=== PATIENT | male | born 1985 | race Caucasian/White ===

== ENCOUNTER 2017-01-12 10:16 | Emergency (ER) | payer MEDICAID, OTHER ==
[~2017-01-12] VITALS: Ht 180.3 cm; Wt 106.6 kg
[~2017-01-12 10:16] MED LIST: ATIVAN1 MG ORAL; AZITHROMYCIN250 MG ORAL; CIPRO500 MG PO; CIPROFLOXACIN500 M2 ORAL; IBUPROFEN400 MG ORAL; IBUPROFEN600 MG ORAL; METRONIDAZOLE500 MG ORAL; NORCO 5-325 TA1 EACH ORAL; PROTONIX40 MG ORAL; TESSALON PERLE100 M2 ORAL
[2017-01-12] MEDS ORDERED: NKM (10:26)
[2017-01-12] MEDS ORDERED: AZITHROMYCIN250 MG ORAL (10:35)
[2017-01-12] MEDS ORDERED: COLACE100 MG ORAL (10:35)
--- NOTE | 2017-01-12 10:41 | Emergency Room Report ---
History of Present Illness General Chief Complaint: Abdominal Pain Source: Patient Present Illness HPI Patient present with complaints of a sore throat ongoing for the past several days After this had noticed some discomfort to the left upper quadrant area of his abdomen He had been told previously that his spleen was enlarged and any infection he usually is covered with antibiotics Denies any vomiting or diarrhea he feels constipated and had taken some over-the -counter remedies Denies any chest pain or shortness of breath denies any back or flank pain denies any trauma Allergies: Coded Allergies: No Known Allergies (Unverified , 11/10/13) Patient History Past Medical History: see triage record Pertinent Family History: none Reviewed Nursing Documentation: PMH: Agreed, PSxH: Agreed Nursing Documentation-PMH Hx Gastrointestinal Problems: Yes - IBD, Gastritis, Enlarged spleen Review of Systems All Other Systems: negative except mentioned in HPI Physical Exam Vital Signs Date Time Temp Pulse Resp B/P Pulse Ox O2 Delivery O2 Flow Rate FiO2 01/12/17 10:20 98.1 78 16 128/89 99 Room Air Sp02 EP Interpretation: reviewed, normal General Appearance: well appearing, no apparent distress Head: normocephalic, atraumatic Eyes: bilateral eye EOMI, bilateral eye PERRL ENT: hearing grossly normal, TMs + canals normal, uvula midline, pharyngeal erythema Neck: full range of motion, supple, no meningismus, no bony tend Respiratory: lungs clear, normal breath sounds, no rhonchi, no respiratory distress, no retraction, no accessory muscle use Cardiovascular #1: normal peripheral pulses, regular rate, rhythm, no edema, no gallop, no JVD, no murmur Gastrointestinal: normal bowel sounds, non tender, soft, no mass, no organomegaly - No palpable spleen, non-distended, no guarding, no hernia, no pulsatile mass, no rebound Genitourinary: no CVA tenderness Musculoskeletal: normal inspection Neurologic: oriented x3, responsive, senior business architect III-XII nml as tested, motor strength/ tone normal, sensory intact Psychiatric: mood/affect normal Skin: normal color, no rash, warm/dry, palpation normal Lymphatic: normal inspection, no adenopathy Medical Decision Making Diagnostic Impression: Primary Impression: pharyngitis Additional Impression: Abdominal pain ER Course Multiple differentials are considered Patient reported a bruise on his left forearm which lasted for 2 days as well which has now resolved Patient does not appear septic or toxic has a fairly benign abdominal evaluation Given the erythema and the pharyngeal region was placed on antibiotics and will have initial Conservative outpatient trial Last Vital Signs Date Time Temp Pulse Resp B/P Pulse Ox O2 Delivery O2 Flow Rate FiO2 01/12/17 10:20 98.1 78 16 128/89 99 Room Air Status: unchanged Disposition: HOME, SELF-CARE Condition: Stable Scripts Docusate Sodium* (COLACE*) 100 Mg Capsule 100 MG ORAL THREE TIMES A DAY, #20 CAP Prov: AMITA JENKINS D.O. 01/12/17 Azithromycin* (ZITHROMAX*) 250 Mg Tablet 250 MG ORAL DAILY, #6 TAB 0 Refills Take two tablets by mouth today, then take one tablet by mouth daily for four days Prov: AMITA JENKINS D.O. 01/12/17 [facility]ERR[facility] ([facility]P) Patient Instructions: Abdominal Pain, Adult, [id number]-[id number], Pharyngitis, Easy-to -Read Additional Instructions: Patient is provided with the discharge instructions notified to follow up with primary doctor in the next 2-3 days otherwise return to the er with any worsening symptoms. Please note that this report is being documented using [employer] technology. This can lead to erroneous entry secondary to incorrect interpretation by the dictating instrument. AMITA JENKINS D.O. Jan 12, 2017 10:41
[2017-01-12 10:45] VITALS: BP 128/89
[2017-01-12 10:47] VITALS: BP 128/89
== END 2017-01-12 10:48 | disposition home or self-care (01) ==
LOC: EMR 10:30
DX: J02.9 Acute pharyngitis, unspecified (principal); R10.12 Left upper quadrant pain
CPT/HCPCS: 99284

== ENCOUNTER 2017-05-06 09:17 | Emergency (ER) | payer MEDICAID ==
[~2017-05-06] VITALS: Ht 180.3 cm; Wt 104.3 kg
[~2017-05-06 09:17] MED LIST changes: +COLACE100 MG ORAL; +NKM
[2017-05-06 09:35] VITALS: BP 133/92
[2017-05-06] MEDS ORDERED: DiphenhydrAMINE 50mg/ml Inj IVP ONE (10:00)
[2017-05-06] MEDS ORDERED: Metoclopramide 10mg/2ml Inj IVP ONE (10:00)
[2017-05-06 10:33] LABS: BASOPHILS % (AUTO) 1.3 % (0.0-2.0); EOSINOPHILS % (AUTO) 2.7 % (0.0-3.0); LYMPHOCYTES % (AUTO) 27.1 % (20.0-45.0); MEAN CORPUSCULAR HEMOGLOBIN 30.2 PG (27.0-31.0); MEAN CORPUSCULAR HGB CONC 34.7 G/DL (32.0-36.0); MEAN CORPUSCULAR VOLUME 87 FL (80-99); MEAN PLATELET VOLUME 7.3 FL (6.5-10.1); MONOCYTES % (AUTO) 9.8 % (1.0-10.0); NEUTROPHILS % (AUTO) 59.1 % (45.0-75.0); PLATELET COUNT 262 K/UL (150-450); RED BLOOD COUNT 5.73 M/UL (4.70-6.10); RED CELL DISTRIBUTION WIDTH 12.4 % (11.6-14.8); WHITE BLOOD COUNT 7.2 K/UL (4.8-10.8)
[2017-05-06 10:52] LABS: ALBUMIN/GLOBULIN RATIO 1.6 (1.0-2.7); ANION GAP 13 (5-15); CALCIUM 9.3 mg/dL (8.6-10.2); CARBON DIOXIDE 24 mEQ/L (20-30); CHLORIDE 99 mEQ/L (98-107); CREATININE 0.9 mg/dL (0.7-1.2); GLOMERULAR FILTRATION RATE > 60 mL/min (>60); HEMOLYSIS 32; POTASSIUM 4.3 mEQ/L (3.4-4.9); SODIUM 136 mEQ/L (135-145)
[2017-05-06 11:04] LABS: ALANINE AMINOTRANSFERASE 60 U/L (3-41); ASPARTATE AMINO TRANSFERASE 26 U/L (5-40)
--- NOTE | 2017-05-06 12:15 | Diagnostic Imaging Report ---
Indication: Severe headaches x3 weeks Technique: Continuous helical CT scanning of the head was performed without intravenous contrast material. Axial and coronal 5 mm sections were generated. Radiation dose was minimized using automated exposure control Dose: Total Dose Length Product - DLP [address] Dose Index - CTDIvol(s) 70.38 mGy. Comparison: None Findings: The ventricular system is normal in size and configuration. There is no shift of midline structures. No abnormal extra-axial fluid collections are noted. There is no evidence of intracerebral bleeding. No other abnormal high or low density areas are noted within the brain. The calvarium is intact. The mastoids are clear. There is minimal ethmoid sinus disease. The included orbits are unremarkable. Impression: Normal CT scan of the head without contrast material. Incidental finding minimal sinus disease The CT scanner at [facility] is accredited by the [employer] and the scans are performed using protocols designed to limit radiation exposure to as low as reasonably achievable to attain images of sufficient resolution adequate for diagnostic evaluation.
[2017-05-06 12:43] VITALS: BP 130/90
[2017-05-06 12:44] VITALS: BP 133/92
[2017-05-06] MEDS ORDERED: FIORICET1 EA ORAL (12:44)
--- NOTE | 2017-05-06 14:43 | Emergency Room Report ---
History of Present Illness General Chief Complaint: General Complaint Source: Patient Present Illness HPI 31-year-old male presents ED complaining of headache. Notes having headache for the last 2 weeks. Pain is a 6/10, throbbing, and localized to the posterior head radiating to the front. Denies neck stiffness. Denies fevers or chills. Denies nausea or vomiting. Has taken multiple [id number] medications without relief. Denies photophobia or blurry vision. No aggravating or relieving factors. Denies any other associated symptoms Allergies: Coded Allergies: No Known Allergies (Unverified , 11/10/13) Patient History Past Medical History: GERD Past Surgical History: none Pertinent Family History: none Social History: Denies: alcohol use, drug use, smoking Immunizations: UTD Reviewed Nursing Documentation: PMH: Agreed, PSxH: Agreed Nursing Documentation-PMH Past Medical History: No History, Except For Hx Gastrointestinal Problems: Yes - IBD, Gastritis, Enlarged spleen Review of Systems All Other Systems: negative except mentioned in HPI Physical Exam Vital Signs Date Time Temp Pulse Resp B/P Pulse Ox O2 Delivery O2 Flow Rate FiO2 05/06/17 09:22 98.1 91 20 133/92 96 Room Air Sp02 EP Interpretation: reviewed, normal General Appearance: no apparent distress, alert, GCS 15, non-toxic Head: normocephalic, atraumatic Eyes: bilateral eye PERRL, bilateral eye normal inspection ENT: hearing grossly normal, normal pharynx, no angioedema, normal voice Neck: full range of motion, supple, no meningismus, supple/symm/no masses Respiratory: chest non-tender, lungs clear, normal breath sounds, speaking full sentences Cardiovascular #1: regular rate, rhythm, no edema Cardiovascular #2: 2+ carotid (R), 2+ carotid (L), 2+ radial (R), 2+ radial (L) , 2+ dorsalis pedis (R), 2+ dorsalis pedis (L) Gastrointestinal: normal bowel sounds, non tender, soft, non-distended, no guarding, no rebound Rectal: deferred Genitourinary: normal inspection, no CVA tenderness Musculoskeletal: back normal, gait/station normal, normal range of motion, non- tender Neurologic: alert, oriented x3, responsive, bag washer III-XII nml as tested, motor strength/tone normal, sensory intact, speech normal Psychiatric: judgement/insight normal, memory normal, mood/affect normal, no suicidal/homicidal ideation Reflexes: 3+ bicep (R), 3+ bicep (L), 3+ tricep (R), 3+ tricep (L), 3+ knee (R) , 3+ knee (L) Skin: normal color, no rash, warm/dry, well hydrated Lymphatic: no adenopathy Medical Decision Making Diagnostic Impression: Primary Impression: Headache Qualified Codes: R51 - Headache ER Course Hospital Course 31-year-old male presents to ED complaining of headaches x 2 weeks Differential diagnoses include: tension headache, migraine, dehydration, intracranial bleed Clinical course Patient placed on stretcher. After initial history and physical I ordered labs , IV fluids, Reglan, Benadryl. Labs reviewed- electrolytes okay, no leukocytosis, hemoglobin/hematocrit stable CT Head unremarkable Upon reassessment patient states pain has improved. Patient feels better wishes to go home. Given the lack of fever, nuchal rigidity or neurological findings my suspicion for intracranial pathology is low patient be safely discharged to home. i. I feel this is a highly complex case requiring extensive working including EKG/Rhythm strip, Xray/CT/US, Blood/urine lab work, repeat exams while in ED, and administration of strong opiates/narcotics for pain control, admission to hospital or close patient follow up. Diagnosis - headache stable and discharged to home with Rx Fioricet. f/up with PMD. return to ED if symptoms recur/worsen. Labs Test 05/06/17 10:20 White Blood Count 7.2 K/UL (4.8-10.8) Red Blood Count 5.73 M/UL (4.70-6.10) Hemoglobin 17.3 G/DL (14.2-18.0) Hematocrit 49.8 % (42.0-52.0) Mean Corpuscular Volume 87 FL (80-99) Mean Corpuscular Hemoglobin 30.2 PG (27.0-31.0) Mean Corpuscular Hemoglobin Concent 34.7 G/DL (32.0-36.0) Red Cell Distribution Width 12.4 % (11.6-14.8) Platelet Count 262 K/UL (150-450) Mean Platelet Volume 7.3 FL (6.5-10.1) Neutrophils (%) (Auto) 59.1 % (45.0-75.0) Lymphocytes (%) (Auto) 27.1 % (20.0-45.0) Monocytes (%) (Auto) 9.8 % (1.0-10.0) Eosinophils (%) (Auto) 2.7 % (0.0-3.0) Basophils (%) (Auto) 1.3 % (0.0-2.0) Sodium Level 136 mEQ/L (135-145) Potassium Level 4.3 mEQ/L (3.4-4.9) Chloride Level 99 mEQ/L (98-107) Carbon Dioxide Level 24 mEQ/L (20-30) Anion Gap 13 (5-15) Blood Urea Nitrogen 11 mg/dL (7-23) Creatinine 0.9 mg/dL (0.7-1.2) Estimat Glomerular Filtration Rate > 60 mL/min (>60) Glucose Level 113 mg/dL (74-106) Calcium Level 9.3 mg/dL (8.6-10.2) Total Bilirubin 0.4 mg/dL (0.0-1.2) Aspartate Amino Transf (AST/SGOT) 26 U/L (5-40) Alanine Aminotransferase (ALT/SGPT) 60 U/L (3-41) Alkaline Phosphatase 76 U/L (40-129) Total Protein 7.0 g/dL (6.6-8.7) Albumin 4.4 g/dL (3.5-5.2) Globulin 2.6 g/dL Albumin/Globulin Ratio 1.6 (1.0-2.7) CT/MRI/US Diagnostic Results CT/MRI/US Diagnostic Results : Imaging Test Ordered: CT Head Impression no acute process Last Vital Signs Date Time Temp Pulse Resp B/P Pulse Ox O2 Delivery O2 Flow Rate FiO2 05/06/17 12:44 98.1 90 20 133/92 96 Room Air Status: improved Disposition: HOME, SELF-CARE Condition: Stable Scripts Acetamin/Butalbital/Caffeine* (FIORICET*) 1 Ea Tab 1 TAB ORAL Q6H, #15 TAB 0 Refills Prov: TROY HOBSON M.D. 05/06/17 Patient Instructions: Tension Headache, [id number] TROY HOBSON M.D. May 06, 2017 14:43
== END 2017-05-06 12:53 | disposition home or self-care (01) ==
LOC: EMR 09:50
DX: R51 Headache (principal); K58.9 Irritable bowel syndrome, unspecified; K21.9 Gastro-esophageal reflux disease without esophagitis
CPT/HCPCS: 36415; 70450; 80053; 85025; 96374; 96375; 99284; J1200; J2765

== ENCOUNTER 2018-01-07 18:28 | Emergency (ER) | payer MEDICAID ==
[~2018-01-07] VITALS: Ht 177.8 cm; Wt 102.1 kg
[~2018-01-07 18:28] MED LIST changes: +FIORICET1 EA ORAL
--- NOTE | 2018-01-07 18:54 | Emergency Room Report ---
History of Present Illness General Chief Complaint: Male Urogenital Problems Source: Patient Present Illness HPI 32 yo male patient presents to ER complaining of prostatitis and requesting refill of Cipro medication. Patient reports hx of prostatitis that occurs "about once a year"; states symptoms feel similar to symptoms today. Patient reports decreased stream strength with urination. Also reports decreased ejaculate while masturbating. Reports hx of scrotal swelling, denies symptoms acutely. Denies scrotum, penis, or perianal pain. Denies dysuria, hematuria, penile discharge. Denies recent sexual contact. Denies fever, chest pain, SOB, abdominal pain, diarrhea, nausea, vomiting. Reports new insurance, appointment with new provider scheduled for February, states cannot wait for treatment. Allergies: Coded Allergies: No Known Allergies (Unverified , 11/10/13) Patient History Past Medical History: see triage record Reviewed Nursing Documentation: PMH: Agreed; PSxH: Agreed Nursing Documentation-PMH Past Medical History: No History, Except For Hx Gastrointestinal Problems: Yes - IBD, Gastritis, prostatitis Review of Systems All Other Systems: negative except mentioned in HPI Physical Exam Vital Signs Date Time Temp Pulse Resp B/P (MAP) Pulse Ox O2 Delivery O2 Flow Rate FiO2 01/07/18 18:33 98.1 71 16 133/5 98 Room Air 98.1 Sp02 EP Interpretation: reviewed, normal General Appearance: well appearing, no apparent distress, alert, GCS 15, non- toxic Head: normocephalic, atraumatic Eyes: bilateral eye normal inspection, bilateral eye PERRL ENT: hearing grossly normal, normal pharynx, no angioedema, normal voice, uvula midline, moist mucus membranes Neck: full range of motion Respiratory: lungs clear, normal breath sounds, no rhonchi, no respiratory distress, no accessory muscle use, no wheezing, speaking full sentences Cardiovascular #1: regular rate, rhythm, no edema Gastrointestinal: non tender, soft, no mass, non-distended, no guarding, no rebound Rectal: normal rectal tone, prostate non-tender - no palpable nodules Genitourinary: no CVA tenderness, penis normal, scrotum normal Musculoskeletal: back normal, digits/nails normal, gait/station normal, normal range of motion, non-tender Neurologic: alert, oriented x3, responsive, motor strength/tone normal, sensory intact Psychiatric: mood/affect normal Skin: no rash Lymphatic: no adenopathy Medical Decision Making PA Attestation Dr. Angulo is my supervising Physician whom patient management has been discussed with. Diagnostic Impression: Primary Impression: Prostatitis, acute ER Course Pt presents to ED c/o prostatitis and requesting refill of medication. DDX considered but are not limited to cystitis, pyelonephritis, prostatitis. VITAL SIGNS are WNL, patient is afebrile. ORDERS: UA with reflux ER COURSE UA results show moderate bacteria in urine, will treat with abx for prostatitis. Informed patient of side effects of chronic Ciprofloxacin use. Will treat with Bactrim. Instructed patient to followup with primary care provider at scheduled appointment and discuss referral to prostate specialist at that time. DISCHARGE: -Rx provided for Bactrim. Discontinue use if develop rash. Patient is resting comfortably in chair, nontoxic appearing, in no acute distress. Patient states they feel better and is ready to go home. Will provide with patient care instructions and any necessary prescriptions. Patient understands and agrees to treatment plan. Patient encouraged to drink plenty of fluids. Patient to take medication as instructed. Care plan and follow-up instructions provided. Patient questions asked and answered. Reports understanding and agreement to treatment plan. Patient instructed to follow-up with primary care provider. ER precautions given. Patient instructed to return to ER immediately for any new or worsening of symptoms. Including but not limited to fever, worsening pain , intractable vomiting. Labs Test 01/07/18 19:14 Urine Color Yellow Urine Appearance Clear Urine pH 5 (4.5-8.0) Urine Specific [place] 1.030 (1.005-1.035) Urine Protein Negative (NEGATIVE) Urine Glucose (UA) Negative (NEGATIVE) Urine Ketones Negative (NEGATIVE) Urine Occult Blood 1+ (NEGATIVE) Urine Nitrite Negative (NEGATIVE) Urine Bilirubin Negative (NEGATIVE) Urine Urobilinogen Normal MG/DL (0.0-1.0) Urine Leukocyte Esterase 1+ (NEGATIVE) Urine RBC 0-2 /HPF (0 - 0) Urine WBC 0-2 /HPF (0 - 0) Urine Squamous Epithelial Cells None /LPF (NONE/OCC) Urine Bacteria Moderate /HPF (NONE) Last Vital Signs Date Time Temp Pulse Resp B/P (MAP) Pulse Ox O2 Delivery O2 Flow Rate FiO2 01/07/18 18:33 98.1 71 16 133/5 98 Room Air 98.1 Disposition: HOME, SELF-CARE Condition: Stable Scripts Trimethoprim/Sulfamethoxazole 160/800* (BACTRIM DS TABLET*) 1 Each Tablet 1 TAB ORAL TWICE A DAY for 7 Days, #14 TAB Prov: Charlie Fermin 01/07/18 Patient Instructions: Prostatitis, [id number] Additional Instructions: Followup with primary care provider in 3 -5 days. Take medications as directed. If you develop a rash, discontinue use of antibiotics. Patient questions asked and answered. ER precautions given, patient instructed to return to ER immediately for any new or worsening of symptoms. Charlie Fermin Jan 07, 2018 18:53
[2018-01-07 19:22] LABS: APPEARANCE,URINE CLEAR; BILIRUBIN, URINE NEGATIVE (NEGATIVE); GLUCOSE, URINE (UA) NEGATIVE (NEGATIVE); KETONES,URINE NEGATIVE (NEGATIVE); LEUKOCYTE ESTERASE ,URINE 1+ (NEGATIVE); NITRITE,URINE NEGATIVE (NEGATIVE); PH,URINE 5 (4.5-8.0); PROTEIN,URINE NEGATIVE (NEGATIVE); UROBILINOGEN,URINE NORMAL MG/DL (0.0-1.0)
[2018-01-07 19:23] LABS: COLOR,URINE YELLOW
[2018-01-07] MEDS ORDERED: BACTRIM DS TAB1 EAC1 ORAL (19:52)
[2018-01-07 20:00] VITALS: BP 134/85
[2018-01-07 20:02] VITALS: BP 134/85
== END 2018-01-07 20:00 | disposition home or self-care (01) ==
LOC: EMR 19:07
DX: N41.0 Acute prostatitis (principal)
CPT/HCPCS: 81003; 87086; 99283

== ENCOUNTER 2018-01-19 10:25 | Emergency (ER) | payer MEDICAID ==
[~2018-01-19] VITALS: Ht 180.3 cm; Wt 102.1 kg
[~2018-01-19 10:25] MED LIST changes: +BACTRIM DS TAB1 EAC1 ORAL
[2018-01-19 10:28] VITALS: BP 141/95
[2018-01-19 11:18] LABS: APPEARANCE,URINE CLEAR; BILIRUBIN, URINE NEGATIVE (NEGATIVE); COLOR,URINE PALE YELLOW; GLUCOSE, URINE (UA) NEGATIVE (NEGATIVE); KETONES,URINE NEGATIVE (NEGATIVE); LEUKOCYTE ESTERASE ,URINE NEGATIVE (NEGATIVE); NITRITE,URINE NEGATIVE (NEGATIVE); PH,URINE 6 (4.5-8.0); PROTEIN,URINE NEGATIVE (NEGATIVE); UROBILINOGEN,URINE NORMAL MG/DL (0.0-1.0)
[2018-01-19] MEDS ORDERED: TAMSULOSIN HCL0.4 MG ORAL (11:40)
[2018-01-19 11:53] VITALS: BP 141/95
--- NOTE | 2018-01-19 12:26 | Emergency Room Report ---
History of Present Illness General Chief Complaint: Male Urogenital Problems Source: Patient Present Illness HPI 32-year-old male presents with request for additional antibiotics for suspected prostatitis. Patient states he was here 2 weeks ago, was diagnosed with recurrent prostatitis , given Bactrim. He states he completed antibiotics and had improvement in symptoms, however he read online that antibiotics doesn't cover all possible bacteria and is concerned that he needs additional antibiotics because symptoms have recurred. Patient believes he has prostatitis because he has retrograde ejaculation and "flow" problems with urination He denies rectal pain, difficulty with urination, anal intercourse He denies dysuria, polyuria, penile discharge He states no rash he followed up with urologist, he states that PMD can't see him for another month I reviewed the EMR, patient's urine culture from that visit showed no growth Allergies: Coded Allergies: No Known Allergies (Unverified , 11/10/13) Patient History Past Medical History: none Past Surgical History: none Pertinent Family History: none Social History: Denies: smoking, alcohol use, drug use Immunizations: UTD Reviewed Nursing Documentation: PMH: Agreed; PSxH: Agreed Nursing Documentation-PMH Hx Gastrointestinal Problems: Yes - IBD, Gastritis, prostatitis Review of Systems All Other Systems: negative except mentioned in HPI Physical Exam Vital Signs Date Time Temp Pulse Resp B/P (MAP) Pulse Ox O2 Delivery O2 Flow Rate FiO2 01/19/18 10:28 97.8 75 16 141/95 96 Room Air 97.9 Sp02 EP Interpretation: reviewed, normal General Appearance: normal inspection, well appearing, no apparent distress, alert, GCS 15, non-toxic Head: normocephalic, atraumatic Eyes: bilateral eye PERRL, bilateral eye EOMI ENT: normal ENT inspection, hearing grossly normal, normal pharynx, no angioedema, normal voice, TMs + canals normal, uvula midline, moist mucus membranes Neck: normal inspection, full range of motion, supple, thyroid normal, no meningismus, no bony tend Respiratory: normal inspection, lungs clear, normal breath sounds, no rhonchi, no respiratory distress, no retraction, no accessory muscle use, no wheezing, speaking full sentences Cardiovascular #1: regular rate, rhythm, no edema, no JVD, normal capillary refill Gastrointestinal: normal inspection, normal bowel sounds, non tender, soft, no mass, no peritonitis, non-distended, no guarding, no hernia, no pulsatile mass Genitourinary: no CVA tenderness Musculoskeletal: normal inspection, back normal, normal range of motion, no calf tenderness, pelvis stable, Jose's Sign negative Neurologic: normal inspection, alert, oriented x3, responsive, supplemental nurse III-XII nml as tested, motor strength/tone normal, cerebellar normal, normal gait, speech normal Psychiatric: normal inspection, judgement/insight normal, mood/affect normal, no suicidal/homicidal ideation, no delusions Skin: normal inspection, normal color, no rash Lymphatic: normal inspection, no adenopathy Medical Decision Making Diagnostic Impression: Primary Impression: Dysuria ER Course Vital signs stable, afebrile Patient very well-appearing, nonseptic appearing I doubt he has prostatitis given recent negative urine culture and urinalysis today is completely normal Also his symptoms are not compatible with actual prostatitis There is some belief with him that symptoms improved with antibiotics, strong suspicion of psychosomatic behavior I expressed concerns about additional antibiotics given side effects especially Cipro and spontaneous Achilles tendon rupture and colitis, C. difficile Discussed with patient that it's possible Flomax might help with his perceived issues with low Blood pressure is actually greater than 140/90, so Flomax might have additional benefit of controlling his blood pressure Still advise importance of PMD referral for urology ER course: Patient has remained stable during ED stay. Disposition: Patient is to be discharged to home. Prescriptions given are flomax Patient is instructed to follow up with their primary care doctor within 5 days. . Strict return precautions discussed with patient such as fever, chills, worsening/severe pain, nausea, vomiting, which may indicate severe illness. Patient verbalizes understanding and agrees with plan. Please note that this Emergency Department Report was dictated using [employer] assembler supervisor technology software, occasionally this can lead to erroneous entry secondary to interpretation by the dictation equipment Last Vital Signs Date Time Temp Pulse Resp B/P (MAP) Pulse Ox O2 Delivery O2 Flow Rate FiO2 01/19/18 11:53 97.8 16 141/95 96 Room Air 97.9 01/19/18 10:28 75 Status: improved Disposition: HOME, SELF-CARE Condition: Improved Scripts Tamsulosin Hcl (TAMSULOSIN HCL*) 0.4 Mg Cap.er.24h 0.4 MG ORAL DAILY for 14 Days, #14 CAP Prov: GRACE TAY M.D. 01/19/18 [facility] ([facility] Patient Instructions: Urethritis, Adult Additional Instructions: - Follow up with urologist GRACE TAY M.D. Jan 19, 2018 12:26
== END 2018-01-19 11:56 | disposition home or self-care (01) ==
LOC: EMR 11:00
DX: R30.0 Dysuria (principal); Z87.19 Personal history of other diseases of the digestive system
CPT/HCPCS: 81003; 99283

== ENCOUNTER 2018-03-06 03:19 | Emergency (ER) | payer MEDICAID ==
[~2018-03-06] VITALS: Ht 180.3 cm; Wt 102.1 kg
[~2018-03-06 03:19] MED LIST changes: +TAMSULOSIN HCL0.4 MG ORAL
[2018-03-06 04:32] LABS: EOSINOPHILS % (AUTO) 3.2 % (0.0-3.0); HEMATOCRIT 46.9 % (42.0-52.0); HEMOGLOBIN 16.6 G/DL (14.2-18.0); LYMPHOCYTES % (AUTO) 37.6 % (20.0-45.0); MEAN CORPUSCULAR VOLUME 84 FL (80-99); MONOCYTES % (AUTO) 9.9 % (1.0-10.0); NEUTROPHILS % (AUTO) 48.3 % (45.0-75.0); PLATELET COUNT 196 K/UL (150-450); RED BLOOD COUNT 5.58 M/UL (4.70-6.10); RED CELL DISTRIBUTION WIDTH 12.1 % (11.6-14.8); WHITE BLOOD COUNT 6.4 K/UL (4.8-10.8)
[2018-03-06 04:33] VITALS: BP 146/95
[2018-03-06] MEDS ORDERED: Sodium Chloride 500ML 500 ML IV ONE (04:45)
[2018-03-06 04:57] LABS: ANION GAP 13 mmol/L (5-15); BLOOD UREA NITROGEN 14 mg/dL (7-18); CARBON DIOXIDE 23 MMOL/L (21-32); CHLORIDE 101 MMOL/L (98-107); CREATININE 1.1 MG/DL (0.55-1.30); POTASSIUM 3.8 MMOL/L (3.5-5.1); SODIUM 137 MMOL/L (136-145)
[2018-03-06 05:02] LABS: ALANINE AMINOTRANSFERASE 93 U/L (12-78); ALBUMIN/GLOBULIN RATIO 1.2 (1.0-2.7); ALKALINE PHOSPHATASE 79 U/L (46-116); ASPARTATE AMINO TRANSFERASE 16 U/L (15-37); BILIRUBIN,TOTAL 0.4 MG/DL (0.2-1.0)
[2018-03-06] MEDS ORDERED: Ketorolac 30mg Inj IV ONE (05:45)
[2018-03-06 06:07] LABS: APPEARANCE,URINE CLEAR; BILIRUBIN, URINE NEGATIVE (NEGATIVE); COLOR,URINE PALE YELLOW; GLUCOSE, URINE (UA) NEGATIVE (NEGATIVE); KETONES,URINE NEGATIVE (NEGATIVE); LEUKOCYTE ESTERASE ,URINE NEGATIVE (NEGATIVE); NITRITE,URINE NEGATIVE (NEGATIVE); PH,URINE 6 (4.5-8.0); PROTEIN,URINE NEGATIVE (NEGATIVE); UROBILINOGEN,URINE NORMAL MG/DL (0.0-1.0)
[2018-03-06] MEDS ORDERED: PRILOSEC OTC20 MG ORAL (06:15)
[2018-03-06 06:31] VITALS: BP 146/95
--- NOTE | 2018-03-06 10:59 | Diagnostic Imaging Report ---
Indication: Abdominal pain Comparison: None Single view of the abdomen obtained Findings: Bowel gas pattern is nonspecific. No mass, ectopic calcifications, or abnormal gas collections are identified. The bones are unremarkable. Impression: No acute findings
--- NOTE | 2018-03-07 13:55 | Emergency Room Report ---
History of Present Illness General Chief Complaint: Back Pain-No Injury Source: Patient Present Illness HPI Patient is a 32-year-old male presented after increased left-sided back pain. Patient denies any recent trauma. He reports having increased pain associated with some increased night sweating. He denies any fever. He denies any recent dysuria or urinary hesitancy. He denies any hematuria. Patient states that he had been having gradual onset of symptoms. He denies any recent trauma. The patient did not seem to radiate. Allergies: Coded Allergies: No Known Allergies (Unverified , 03/06/18) Patient History Past Medical History: see triage record Reviewed Nursing Documentation: PMH: Agreed; PSxH: Agreed Nursing Documentation-PMH Hx Gastrointestinal Problems: Yes - IBD, Gastritis, prostatitis Review of Systems All Other Systems: negative except mentioned in HPI Physical Exam Vital Signs Date Time Temp Pulse Resp B/P (MAP) Pulse Ox O2 Delivery O2 Flow Rate FiO2 03/06/18 03:23 97.7 78 16 144/100 95 Room Air 97.7 Sp02 EP Interpretation: reviewed, normal General Appearance: normal inspection, well appearing, no apparent distress, alert, GCS 15, non-toxic Head: atraumatic ENT: normal ENT inspection, hearing grossly normal, normal voice Neck: normal inspection, full range of motion, supple, no bony tend Respiratory: normal inspection, lungs clear, normal breath sounds, no respiratory distress, no retraction, no wheezing Cardiovascular #1: regular rate, rhythm, no edema Gastrointestinal: normal inspection, normal bowel sounds, non tender, soft, no guarding, no hernia Genitourinary: no CVA tenderness Musculoskeletal: normal inspection, back normal, normal range of motion Neurologic: normal inspection, alert, oriented x3, responsive, postal sorting officer III-XII nml as tested, speech normal Psychiatric: normal inspection, judgement/insight normal, mood/affect normal Skin: normal inspection, normal color, no rash Medical Decision Making Diagnostic Impression: Primary Impression: Back pain ER Course Patient presented for back pain. Differential diagnosis included but was not limited to herniated disc, cauda equina syndrome, abdominal aortic aneurysm, perforated ulcer, spinal epidural abscess, spinal stenosis, lumbar fracture, metastatic lesion, pyelonephritis. Because of complexity of patient's case laboratory testing and imaging studies were ordered. The laboratory studies are unremarkable. Patient was given prescription for acid blockers and advised to follow-up with his primary care physician for further evaluation and treatment.The patient was noted to have prior history of splenomegaly.The patient is advised to follow up with primary care doctor in 1- 2 days. Patient is advised to return if any worsening condition or if any changes in status that are concerning. This report is dictated with [employer] staff cytotechnologist software which may occasionally lead to discrepancies related to use of this software. Labs Test 03/06/18 04:20 03/06/18 05:25 White Blood Count 6.4 K/UL (4.8-10.8) Red Blood Count 5.58 M/UL (4.70-6.10) Hemoglobin 16.6 G/DL (14.2-18.0) Hematocrit 46.9 % (42.0-52.0) Mean Corpuscular Volume 84 FL (80-99) Mean Corpuscular Hemoglobin 29.7 PG (27.0-31.0) Mean Corpuscular Hemoglobin Concent 35.3 G/DL (32.0-36.0) Red Cell Distribution Width 12.1 % (11.6-14.8) Platelet Count 196 K/UL (150-450) Mean Platelet Volume 8.3 FL (6.5-10.1) Neutrophils (%) (Auto) 48.3 % (45.0-75.0) Lymphocytes (%) (Auto) 37.6 % (20.0-45.0) Monocytes (%) (Auto) 9.9 % (1.0-10.0) Eosinophils (%) (Auto) 3.2 % (0.0-3.0) Basophils (%) (Auto) 1.0 % (0.0-2.0) Sodium Level 137 MMOL/L (136-145) Potassium Level 3.8 MMOL/L (3.5-5.1) Chloride Level 101 MMOL/L (98-107) Carbon Dioxide Level 23 MMOL/L (21-32) Anion Gap 13 mmol/L (5-15) Blood Urea Nitrogen 14 mg/dL (7-18) Creatinine 1.1 MG/DL (0.55-1.30) Estimat Glomerular Filtration Rate > 60 mL/min (>60) Glucose Level 115 MG/DL (74-106) Calcium Level 9.0 MG/DL (8.5-10.1) Total Bilirubin 0.4 MG/DL (0.2-1.0) Aspartate Amino Transf (AST/SGOT) 16 U/L (15-37) Alanine Aminotransferase (ALT/SGPT) 93 U/L (12-78) Alkaline Phosphatase 79 U/L (46-116) Troponin I 0.000 ng/mL (0.000-0.056) Total Protein 7.4 G/DL (6.4-8.2) Albumin 4.0 G/DL (3.4-5.0) Globulin 3.4 g/dL Albumin/Globulin Ratio 1.2 (1.0-2.7) Lipase 106 U/L (73-393) Urine Color Pale yellow Urine Appearance Clear Urine pH 6 (4.5-8.0) Urine Specific [place] 1.020 (1.005-1.035) Urine Protein Negative (NEGATIVE) Urine Glucose (UA) Negative (NEGATIVE) Urine Ketones Negative (NEGATIVE) Urine Occult Blood Negative (NEGATIVE) Urine Nitrite Negative (NEGATIVE) Urine Bilirubin Negative (NEGATIVE) Urine Urobilinogen Normal MG/DL (0.0-1.0) Urine Leukocyte Esterase Negative (NEGATIVE) Last Vital Signs Date Time Temp Pulse Resp B/P (MAP) Pulse Ox O2 Delivery O2 Flow Rate FiO2 03/06/18 06:31 97.7 73 20 146/95 95 Room Air 207.9 Status: improved Disposition: HOME, SELF-CARE Condition: Stable Scripts Omeprazole Magnesium (PRILOSEC OTC) 20 Mg Tablet. 20 MG ORAL DAILY, #30 TAB Prov: Freddy Angulo MD 03/06/18 Patient Instructions: Back Pain, Adult Freddy Angulo MD March 07, 2018 13:55
--- NOTE | 2018-03-07 22:44 | Cardiology Report ---
APPROVED REPORT EKG Measurement Heart [id number] Normal sinus rhythm Normal ECG
== END 2018-03-06 06:34 | disposition home or self-care (01) ==
LOC: EMR 03:46
DX: M54.9 Dorsalgia, unspecified (principal); R10.9 Unspecified abdominal pain; Z87.19 Personal history of other diseases of the digestive system
CPT/HCPCS: 36415; 74018; 80053; 81003; 83690; 84484; 85025; 93005; 96374; 96375; 99284; J1885; J7040; S0028

== ENCOUNTER 2018-04-30 14:41 | Emergency (ER) | payer MEDICAID ==
[~2018-04-30] VITALS: Ht 180.3 cm; Wt 104.3 kg
[~2018-04-30 14:41] MED LIST changes: +PRILOSEC OTC20 MG ORAL
--- NOTE | 2018-04-30 15:07 | Emergency Room Report ---
History of Present Illness General Chief Complaint: Lower Extremity Injury Source: Patient, Medical Record Present Illness HPI 32-year-old male patient presents ER complaining of ankle pain for the past month. Reports that he was playing basketball month ago in brand-new shoes when he thinks that he may have twisted his ankle. Reports pain sometimes shoots down his foot when walking. Reports mild swelling noted. Reports has wrapped his foot for the past few days which helps alleviate the symptoms. Denies not being able to walk. Denies hitting his head or loss of consciousness. Denies other acute symptoms. Reports took Ibuprofen 1 hour ago. Allergies: Coded Allergies: No Known Allergies (Unverified , 03/06/18) Patient History Past Medical History: see triage record Reviewed Nursing Documentation: PMH: Agreed; PSxH: Agreed Nursing Documentation-PMH Past Medical History: No History, Except For Hx Gastrointestinal Problems: Yes - IBD, Gastritis, prostatitis Review of Systems All Other Systems: negative except mentioned in HPI Physical Exam Vital Signs Date Time Temp Pulse Resp B/P (MAP) Pulse Ox O2 Delivery O2 Flow Rate FiO2 04/30/18 14:43 98.0 80 18 133/84 98 Room Air 98.1 Sp02 EP Interpretation: reviewed, normal General Appearance: well appearing, no apparent distress, alert, GCS 15, non- toxic Head: normocephalic, atraumatic Eyes: bilateral eye normal inspection, bilateral eye PERRL ENT: hearing grossly normal, normal pharynx, no angioedema, normal voice, uvula midline, moist mucus membranes Neck: full range of motion Respiratory: lungs clear, normal breath sounds, no rhonchi, no respiratory distress, no accessory muscle use, no wheezing, speaking full sentences Cardiovascular #1: regular rate, rhythm, no edema Cardiovascular #2: 2+ dorsalis pedis (R), 2+ dorsalis pedis (L) Musculoskeletal: back normal, digits/nails normal, gait/station normal, normal range of motion, non-tender, no calf tenderness, Jose's Sign negative, other - NVI, sensation intact to light touch, no erythema, negative syndesmotic squeeze test, tender - dorsum of lateral right ankle near anterior lateral mallelous Neurologic: alert, oriented x3, responsive, motor strength/tone normal, sensory intact Skin: no rash Medical Decision Making PA Attestation Dr. Molina is my supervising Physician whom patient management has been discussed with. Diagnostic Impression: Primary Impression: Ankle sprain ER Course Pt. presents to the ED c/o right ankle pain. Ddx considered but are not limited to fracture, sprain, strain, contusion, dislocation. No erythema, no warmth to touch, no fever, nontoxic appearing, low suspicion for septic joint. Vital signs: are WNL, pt. is afebrile Ordered X-ray and pain medication. ER COURSE Provided with pain medication. An X-ray of the right ankle shows acute fracture per the preliminary reading. likely ankle sprain causing pain symptoms. Advised patient on rest and elevation, advised patient to wear brace with exercise. MAGO wrap was applied to the right ankle was checked afterwards by me showing good alignment and support with distal neurovascular functioning intact. Crutches not provided. Patient able to ambulate independently without difficulty. patient declined crutches. Patient instructed on RICE method: rest, ice, compression, elevation. Patient instructed on rest, ice and heat. Patient instructed to be WBAT Followup with primary care provider. Discuss referral to ortho/pain management/ PT as needed. Discuss further imaging with MRI/CT as needed. DISCHARGE: -Rx provided for ibuprofen for pain symptoms. At this time pt. is stable for d/c to home. Patient is resting comfortably, in no acute distress, nontoxic appearing, talking without difficulty. Will provide printed patient care instructions, and any necessary prescriptions. Patient instructed to follow with primary care provider in 3 - 5 days and to request further follow-up as needed. Care plan and follow up instructions have been discussed with the patient prior to discharge. Take medications as directed. Patient questions asked and answered. Patient reports understanding and agreement to treatment plan. ER precautions given, patient instructed to return to ER immediately for any new or worsening of symptoms. - Please note that this Emergency Department Report was dictated using [employer] insulator helper technology software, occasionally this can lead to erroneous entry secondary to interpretation by the dictation equipment. Other X-Ray Diagnostic Results Other X-Ray Diagnostic Results : X-Ray ordered: right ankle # of Views/Limited Vs Complete: 3 View Indication: Pain EP Interpretation: Yes PA Xray: Interpretation reviewed, by supervising MD, and agrees with findings. Interpretation: no dislocation, no soft tissue swelling, no fractures Impression: No acute disease PA Scribe Text Bill Fermin PA-C Last Vital Signs Date Time Temp Pulse Resp B/P (MAP) Pulse Ox O2 Delivery O2 Flow Rate FiO2 04/30/18 14:43 98.0 80 18 133/84 98 Room Air 98.1 Disposition: HOME, SELF-CARE Condition: Stable Scripts Ibuprofen* (MOTRIN*) 800 Mg Tablet 800 MG ORAL Q8H, #30 TAB 0 Refills Prov: Charlie Fermin 04/30/18 Patient Instructions: Ankle Sprain Additional Instructions: Patient instructed to follow up with primary care provider and discuss further referral to orthopedics. Patient instructed on RICE method: rest, ice, compression, elevation. Patient instructed to WBAT. Take medications as directed. Patient questions asked and answered. ER precautions given, patient instructed to return to ER immediately for any new or worsening of symptoms. Charlie Fermin Apr 30, 2018 15:07
[2018-04-30] MEDS ORDERED: IBUPROFEN800 MG ORAL (15:35)
[2018-04-30 15:43] VITALS: BP 125/74
--- NOTE | 2018-04-30 16:10 | Diagnostic Imaging Report ---
Indication: Pain, swelling, injury Technique: 3 views of the right ankle Comparison: none Findings: No acute fractures. No dislocations. The joint spaces are preserved. Impression: Negative
== END 2018-04-30 15:43 | disposition home or self-care (01) ==
LOC: EMR 15:00
DX: S93.401A Sprain of unspecified ligament of right ankle, initial encounter (principal); X50.1XXA Overexertion from prolonged static or awkward postures, initial encounter; Y93.67 Activity, basketball; Y92.9 Unspecified place or not applicable
CPT/HCPCS: 99283

== ENCOUNTER 2018-11-18 06:42 | Emergency (ER) | payer MEDICAID ==
[~2018-11-18] VITALS: Ht 177.8 cm; Wt 102.1 kg
[~2018-11-18 06:42] MED LIST changes: +IBUPROFEN800 MG ORAL
--- NOTE | 2018-11-18 07:00 | NUR ---
ED Nurse Note: pt walked into ED from home c/o cough and phlegm x 4 days.
[2018-11-18 07:30] VITALS: BP 133/79
--- NOTE | 2018-11-18 07:32 | Emergency Room Report ---
History of Present Illness General Chief Complaint: Upper Respiratory Illness Source: Patient Present Illness HPI This patient has had cough for the past 4 days. He states he is also had sputum production. He states the symptoms are worse at night. He has had sweating and subjective fever. He denies chest pain or shortness of breath. Denies abdominal pain. He denies sore throat. He denies headache or neck pain. He denies nausea or vomiting. He has no other complaints. Allergies: Uncoded Allergies: STEROID (Allergy, Mild, 11/18/18) Patient History Past Medical History: see triage record, GERD Past Surgical History: none Social History: Reports: alcohol use; Denies: smoking, drug use Reviewed Nursing Documentation: PMH: Agreed; PSxH: Agreed Nursing Documentation-PMH Hx Gastrointestinal Problems: Yes - IBD, Gastritis, prostatitis Review of Systems All Other Systems: negative except mentioned in HPI Physical Exam Vital Signs Date Time Temp Pulse Resp B/P (MAP) Pulse Ox O2 Delivery O2 Flow Rate FiO2 11/18/18 06:46 99.3 90 16 133/79 95 Room Air Sp02 EP Interpretation: reviewed, normal General Appearance: no apparent distress, alert, GCS 15, non-toxic Head: normocephalic, atraumatic Eyes: bilateral eye normal inspection, bilateral eye PERRL ENT: hearing grossly normal, normal pharynx, no angioedema, normal voice Neck: full range of motion, supple/symm/no masses Respiratory: chest non-tender, lungs clear, normal breath sounds, no respiratory distress, no retraction, no accessory muscle use, speaking full sentences Cardiovascular #1: regular rate, rhythm, no edema Gastrointestinal: normal bowel sounds, non tender, soft, non-distended, no guarding, no rebound Rectal: deferred Musculoskeletal: back normal, gait/station normal, normal range of motion, non- tender Neurologic: alert, oriented x3, responsive, motor strength/tone normal, sensory intact, speech normal Psychiatric: judgement/insight normal, memory normal, mood/affect normal, no suicidal/homicidal ideation Reflexes: 3+ bicep (R), 3+ bicep (L), 3+ tricep (R), 3+ tricep (L), 3+ knee (R) , 3+ knee (L) Skin: normal color, no rash, warm/dry, well hydrated Medical Decision Making Diagnostic Impression: Primary Impression: Upper respiratory infection ER Course This patient has a clinical presentation with upper respiratory tract infection. The evaluation was very reassuring with a normal lung exam, no respiratory distress, normal pulse oximetry. I am not concerned for pneumonia in this patient. This is most likely viral and will not need antibiotic therapy. I will treat supportively with cough suppressants. The patient is requesting azithromycin. I discussed the patient that most likely this is a viral illness. He agreed to do a watch and wait prescription. The patient was instructed to wait to fill this prescription to see how he does over the next few days. If his symptoms worsen and his sputum thickens then I instructed him to go ahead and start the antibiotics. No emergency medical condition was identified. The patient is given close return precautions and follow-up instructions. Chest X-Ray Diagnostic Results Chest X-Ray Diagnostic Results : Chest X-Ray Ordered: Yes # of Views/Limited/Complete: 1 View Indication: Other - cough EP Interpretation: Yes Interpretation: no consolidation, no effusion, no pneumothorax, no acute cardiopulmonary disease, other - Elevated r. hemidiaphragm, unchanged from comparison in 2015 Last Vital Signs Date Time Temp Pulse Resp B/P (MAP) Pulse Ox O2 Delivery O2 Flow Rate FiO2 11/18/18 06:46 99.3 90 16 133/79 95 Room Air Status: improved Disposition: HOME, SELF-CARE Condition: Improved Scripts Benzonatate* (TESSALON PERLE*) 100 Mg Capsule 100 MG ORAL THREE TIMES A DAY, #15 PERLE Prov: Zaida Molina DO 11/18/18 Azithromycin* (ZITHROMAX*) 250 Mg Tablet 250 MG ORAL see instructions, #6 TAB 0 Refills Take two tables once daily for 1 day, then one tablet once daily for 4 days. Prov: Zaida Molina DO 11/18/18 Referrals: Mirian Hunt MD (PCP) Patient Instructions: Upper Respiratory Infection, Adult Zaida Molina DO Nov 18, 2018 07:32
[2018-11-18] MEDS ORDERED: TESSALON PERLE100 MG ORAL (07:33)
[2018-11-18] MEDS ORDERED: ZITHROMAX250 MG ORAL (07:33)
--- NOTE | 2018-11-18 07:36 | NUR ---
ED Nurse Note: cxr taken
[2018-11-18 07:58] VITALS: BP 133/79
--- NOTE | 2018-11-18 07:59 | NUR ---
ED Nurse Note: pt cleared to d/c per ER provider order, pt discharge instruction provided w/prescription sent electronically, pt advised to follow up with pcp or return to ed if s/s worsen or new s/s develop, pt education done via discussion and hand out, patient verbalized understanding. ID wristband removed, pt vss, ambulatory w/ steady gait, respiration even and unlabored, airway intact, pt left with all belongings.
--- NOTE | 2018-11-18 11:28 | Diagnostic Imaging Report ---
Indication: Cough Comparison: 12/15/2015 A single view chest radiograph was obtained. Findings: Cardiomediastinal appearance is within normal limits for age. The lungs are clear. Pulmonary vascularity is appropriate. The diaphragmatic contour is smooth and costophrenic angles are sharp. No pleural effusions are identified. The bones are unremarkable. Impression: No acute findings
== END 2018-11-18 08:01 | disposition home or self-care (01) ==
LOC: EMR 07:00
DX: J06.9 Acute upper respiratory infection, unspecified (principal); K21.9 Gastro-esophageal reflux disease without esophagitis
CPT/HCPCS: 71045; 99283

== ENCOUNTER 2018-12-01 00:52 | Emergency (ER) | payer MEDICAID ==
[~2018-12-01] VITALS: Ht 180.3 cm; Wt 101.2 kg
[~2018-12-01 00:52] MED LIST changes: +TESSALON PERLE100 MG ORAL; +ZITHROMAX250 MG ORAL
[2018-12-01] MEDS ORDERED: NKM (01:05)
--- NOTE | 2018-12-01 01:14 | NUR ---
ED Nurse Note: Patient presents with complaints of recurrent cough with buring in the chest.
[2018-12-01 01:16] VITALS: BP 127/77
--- NOTE | 2018-12-01 01:20 | NUR ---
ED Nurse Note: Patient accompanied by friend, YOCASTA at bedside.
[2018-12-01] MEDS ORDERED: NAPROXEN375 M2 ORAL (01:35)
[2018-12-01] MEDS ORDERED: GUAIFENESIN DM118 M1 ORAL (01:35)
[2018-12-01] MEDS ORDERED: ALBUTEROL SULF8.5 GM INH (01:35)
[2018-12-01] MEDS ORDERED: ROBITUSSIN AC5 ML ORAL (01:36)
--- NOTE | 2018-12-01 01:42 | NUR ---
ED Nurse Note: Patient discharged after evaluation by YOCASTA, patient is A&Ox4, ambulatory with steady gait, in stable condition and verbalizes understanding of discharge instructions. ID band removed, patient departed with all belongings accompanied by his friend.
[2018-12-01 01:44] VITALS: BP 127/77
--- NOTE | 2018-12-01 02:42 | Emergency Room Report ---
History of Present Illness General Chief Complaint: Fever Source: Patient Present Illness HPI Patient is a 33-year-old male presented after persistent cough. Patient had recent of the ER visit for similar symptoms. He reported having taken azithromycin without any improvement. Patient had previously been prescribed cough medications. He was noted to have persistent nonproductive cough. He denies any severe difficulty breathing. He reports having a moderate headache. He denies any difficulty breathing. Allergies: Coded Allergies: No Known Allergies (Unverified , 12/01/18) Patient History Past Medical History: see triage record Reviewed Nursing Documentation: PMH: Agreed; PSxH: Agreed Nursing Documentation-PM Past Medical History: No Stated History Hx Gastrointestinal Problems: Yes - IBD, Gastritis, prostatitis Review of Systems All Other Systems: negative except mentioned in HPI Physical Exam Vital Signs Date Time Temp Pulse Resp B/P (MAP) Pulse Ox O2 Delivery O2 Flow Rate FiO2 12/01/18 00:59 99.5 100 14 127/77 98 Room Air General Appearance: well appearing, no apparent distress, alert, GCS 15 Head: normocephalic, atraumatic ENT: hearing grossly normal, normal voice Neck: full range of motion, supple Respiratory: normal inspection, no respiratory distress, speaking full sentences, wheezing Gastrointestinal: normal inspection Musculoskeletal: normal inspection, back normal, digits/nails normal, no calf tenderness Neurologic: normal inspection, alert, oriented x3, responsive, normal gait Psychiatric: mood/affect normal Skin: normal inspection, no rash Medical Decision Making Diagnostic Impression: Primary Impression: Viral bronchitis Additional Impression: Cough ER Course Patient presented for cough. Differential diagnosis included but was not limited to bronchitis, pneumonia, pulmonary embolism, pericarditis, asthma, foreign body. Patient has a benign exam and does not appear to require any further imaging or laboratory testing at this time. Patient was noted to have some wheezing. Patient declined breathing treatments. Patient was given medications for symptomatic treatment. Patient does not appear to be in any respiratory distress at this time. Patient appears to have a flulike illness. He will be given prescriptions for symptomatic treatment. Patient was advised to follow-up with primary care physician. Last Vital Signs Date Time Temp Pulse Resp B/P (MAP) Pulse Ox O2 Delivery O2 Flow Rate FiO2 12/01/18 01:44 99.5 78 14 127/77 98 Room Air Status: improved Disposition: HOME, SELF-CARE Condition: Stable Scripts Guaifenesin/Codeine (Guaifenesin-Codeine Syrup) 5 Ml Liquid 5 ML ORAL Q4H PRN for For Cough, #118 ML Prov: Freddy Angulo MD 12/01/18 Albuterol Sulfate* (ALBUTEROL SULFATE MDI*) 8.5 Gm Hfa.aer.ad 2 PUFF INH Q4H PRN for cough/wheezing, #1 EA 0 Refills Prov: Freddy Angulo MD 12/01/18 Naproxen* (NAPROXEN*) 375 Mg Tablet. 375 MG ORAL TWICE A DAY, #20 TAB Prov: Freddy Angulo MD 12/01/18 Referrals: Mirian Hunt MD (PCP) Patient Instructions: Viral Respiratory Infection Freddy Angulo MD Dec 01, 2018 02:42
== END 2018-12-01 01:45 | disposition home or self-care (01) ==
LOC: EMR 01:20
DX: J20.8 Acute bronchitis due to other specified organisms (principal)
CPT/HCPCS: 99281